=== PATIENT | male | born 1970 | race Caucasian/White ===

== ENCOUNTER 2017-04-22 20:59 | Emergency (ER) | payer OTHER ==
[~2017-04-22] VITALS: Ht 182.8 cm; Wt 90.7 kg
[~2017-04-22 20:59] MED LIST: ASPIRIN325 M2 PO; ATARAX25 MG PO; AUGMENTIN 500 M1 TAB PO; BACTRIM DS 8001 TA1 PO; CEPHALEXIN500 M1 PO; CIPRO500 MG PO; CIPROFLOXACIN500 MG PO; CLARITIN10 MG PO; CLINDAMYCIN HC300 MG PO; CLONIDINE0.1 MG PO; COLCHICINE0.6 MG PO; Carafate1 GM PO; FAMOTIDINE20 MG PO; INDOCIN25 MG PO; LEVOFLOXACIN500 MG PO; LIDEX0.05% T; Lunesta2 MG PO; MOTRIN800 MG PO; NKHM; PERCOCET 325 MG1 TA7 PO; PREDNICOT20 MG PO; PREDNISONE10 MG PO; SEPTRA DS 800 M1 TAB PO; SUBOXONE 2 MG-01 TA2 SL; SUBOXONE 8 MG-21 TA2 SL; VICO10300 PO; VICODIN 500 MG-1 TAB PO; ZOFRAN ODT4 MG SL; ZYLOPRIM100 MG PO; Zofran4 MG PO
[2017-04-22 21:08] VITALS: BP 176/81
[2017-04-22] MEDS ORDERED: BACITRACIN1 GM OP (21:33)
[2017-04-22] MEDS ORDERED: KEFLEX 500 MG E2 CAP PO (21:33)
[2017-04-22] MEDS ORDERED: Peridex 473 ML473 ML PO (21:34)
[2017-04-22] MEDS ORDERED: PERCOCET 325 MG1 TA2 PO (21:35)
[2017-04-22] MEDS ORDERED: MEDROL DOSEPAK4 MG PO (21:36)
== END 2017-04-22 22:10 | disposition home or self-care (01) ==
LOC: ED 20:59
DX: G89.18 Other acute postprocedural pain (principal); R22.0 Localized swelling, mass and lump, head; Z98.890 Other specified postprocedural states; Z79.82 Long term (current) use of aspirin; Z88.8 Allergy status to other drugs, medicaments and biological substances

== ENCOUNTER 2017-05-20 15:11 | Inpatient (IN) | payer OTHER ==
[~2017-05-20] VITALS: Ht 185.4 cm; Wt 106.2 kg
[2017-05-20 15:11] VITALS: BP 170/100
[~2017-05-20 15:11] MED LIST changes: +BACITRACIN1 GM OP; +KEFLEX 500 MG E2 CAP PO; +MEDROL DOSEPAK4 MG PO; +PERCOCET 325 MG1 TA2 PO; +Peridex 473 ML473 ML PO
[2017-05-20 15:37] LABS: BASO % 0.5 % (0.0-1.0); EOS # 0.1 10*3/uL (0.0-0.4); HEMATOCRIT 38.7 % (42.0-52.0); LYMPH # 1.5 10*3/uL (1.3-4.4); LYMPH % 25.7 % (27.0-41.0); MEAN CELL VOLUME 92.6 fl (80.0-94.0); MEAN CORPUSCULAR HGB 31.1 pg (27.0-31.0); MEAN CORPUSCULAR HGB CONC 33.6 g/dl (33.0-37.0); MEAN PLATELET VOLUME 9.8 fl (9.6-12.3); MONO # 0.6 10*3/uL (0.1-1.0); MONO % 9.4 % (3.0-9.0); NEUT # 3.7 10*3/uL (2.3-7.9); NEUT % 62.7 % (47.0-73.0); PLATELET COUNT AUTOMATED 174 10*3/uL (130-400); RED BLOOD COUNT 4.18 10*6/uL (4.50-5.90); RED CELL DISTRI WIDTH 13.8 % (0-14.5); WHITE BLOOD COUNT 5.8 10*3/uL (4.8-10.8)
[2017-05-20 15:54] LABS: ALBUMIN 4.2 gm/dl (3.1-4.5); BILIRUBIN, TOTAL 0.5 mg/dl (0.2-1.0); TOTAL PROTEIN 8.5 gm/dL (6.4-8.2)
[2017-05-20 15:57] LABS: TROPONIN I 0.076 ng/ml (<0.045)
[2017-05-20 16:10] VITALS: BP 146/66; BP 146/86
[2017-05-20 16:48] LABS: BILIRUBIN NEGATIVE (NEGATIVE); BLOOD 3+ (NEGATIVE); CLARITY CLEAR (CLEAR); COLOR YELLOW (YELLOW); GLUCOSE TRACE (NEGATIVE); KETONE NEGATIVE (NEGATIVE); LEUKO ESTERASE NEGATIVE (NEGATIVE); NITRITE NEGATIVE (NEGATIVE); PH 5.5 (5.0-9.0); PROTEIN 1+ (NEGATIVE); SPECIFIC GRAVITY 1.015 (1.005-1.030); UROBILINOGEN 0.2 E.U./dl (0.2-1.0)
[2017-05-20 17:00] LABS: URINE AMPHETAMINES < 1000 (1000ng/ml); URINE BARBITURATES < 200 (200ng/ml); URINE COCAINE > 300 (300ng/ml)
[2017-05-20 17:03] LABS: URINE REFLEX COMMENT YES (NO)
[2017-05-20 18:15] VITALS: BP 119/73
[2017-05-20 18:45] VITALS: BP 122/64
[2017-05-20 20:00] VITALS: BP 122/64
[2017-05-21] VITALS: BP 110/62
[2017-05-21 00:42] LABS: CKMB 1.7 ng/ml (0.5-3.6)
[2017-05-21 00:45] LABS: TROPONIN I 0.089 ng/ml (<0.045)
[2017-05-21 04:00] VITALS: BP 96/52
[2017-05-21 06:38] LABS: CKMB 1.3 ng/ml (0.5-3.6)
[2017-05-21 06:42] LABS: ALBUMIN 3.5 gm/dl (3.1-4.5); BUN 21 mg/dl (7-24); CARBON DIOXIDE 29 mmol/L (21-32); CHLORIDE 102 mmol/L (98-107); CHOLESTEROL 157 mg/dL (<200); EST GLOM FILT AFRICAN AMERICAN > 60 ml/min; GLUCOSE 96 mg/dL (65-99); MAGNESIUM 1.8 mg/dL (1.5-2.1); PHOSPHOROUS 3.3 mg/dL (2.5-4.9); POTASSIUM 4.9 mmol/L (3.5-5.1); SGOT/AST 42 IU/L (3-35); SGPT/ALT 51 U/L (12-78); SODIUM 136 mmol/L (136-145); TRIGLYCERIDES 49 mg/dl (<150); VLDL CHOLESTEROL 10 mg/dL (6-40)
[2017-05-21 06:47] LABS: BASO % 0.3 % (0.0-1.0); EOS # 0.1 10*3/uL (0.0-0.4); EOS % 1.4 % (1.0-4.0); HEMATOCRIT 34.8 % (42.0-52.0); HEMOGLOBIN 11.5 g/dl (14.0-18.0); LYMPH # 1.5 10*3/uL (1.3-4.4); LYMPH % 16.6 % (27.0-41.0); MEAN CELL VOLUME 94.1 fl (80.0-94.0); MEAN CORPUSCULAR HGB 31.1 pg (27.0-31.0); MEAN PLATELET VOLUME 10.4 fl (9.6-12.3); MONO # 0.7 10*3/uL (0.1-1.0); MONO % 7.1 % (3.0-9.0); NEUT # 6.8 10*3/uL (2.3-7.9); NEUT % 74.2 % (47.0-73.0); PLATELET COUNT AUTOMATED 165 10*3/uL (130-400); RED CELL DISTRI WIDTH 14.1 % (0-14.5); WHITE BLOOD COUNT 9.2 10*3/uL (4.8-10.8)
[2017-05-21 06:49] LABS: ALKALINE PHOSPHATASE 69 U/L (45-117); BILIRUBIN, TOTAL 0.9 mg/dl (0.2-1.0); FREE T4 0.76 ng/dl (0.76-1.46); HDL CHOLESTEROL 59 mg/dl (40-60); LDL CHOLESTEROL 88 mg/dL (9-159); THYROID STIM HORMONE (HS) 0.614 uIU/ml (0.358-4.75); TOTAL PROTEIN 7.4 gm/dL (6.4-8.2)
[2017-05-21 06:52] LABS: FOLIC ACID 12.11 ng/mL (>5.38); VITAMIN D, 25-HYDROXY 41.2 ng/mL (30-100)
[2017-05-21 07:08] LABS: PROTHROMBIN TIME 10.7 SECONDS (9.0-12.4)
[2017-05-21 07:09] LABS: HEMOGLOBIN A1c 5.6 % (4.8-5.6)
[2017-05-21 08:00] VITALS: BP 94/54
== END 2017-05-21 12:24 | disposition home or self-care (01) | DRG 917 ==
LOC: ED 15:11 → ICCU 17:18 → EDHOLD 17:18 → 5E 17:28 → ICCU 17:52
PROVIDERS: Emergency Medicine; Hospitalist
DX: T40.601A Poisoning by unspecified narcotics, accidental (unintentional), initial encounter (principal); N17.0 Acute kidney failure with tubular necrosis; G93.41 Metabolic encephalopathy; E87.1 Hypo-osmolality and hyponatremia; Y92.89 Other specified places as the place of occurrence of the external cause; K21.9 Gastro-esophageal reflux disease without esophagitis; B19.20 Unspecified viral hepatitis C without hepatic coma; R91.1 Solitary pulmonary nodule; M10.9 Gout, unspecified; F17.210 Nicotine dependence, cigarettes, uncomplicated; F11.10 Opioid abuse, uncomplicated; F10.10 Alcohol abuse, uncomplicated; E87.8 Other disorders of electrolyte and fluid balance, not elsewhere classified; Z83.3 Family history of diabetes mellitus; Z88.8 Allergy status to other drugs, medicaments and biological substances

== ENCOUNTER → 2017-06-28 | Outpatient (CLI) | payer OTHER | END | disposition home or self-care (01) | LOC: RAD 17:36 | DX: M25.551 Pain in right hip (principal); S39.91XD Unspecified injury of abdomen, subsequent encounter; X58.XXXD Exposure to other specified factors, subsequent encounter ==

== ENCOUNTER 2017-12-08 01:43 | Emergency (ER) | payer OTHER ==
[~2017-12-08] VITALS: Ht 182.8 cm; Wt 95.3 kg
[2017-12-08 01:50] VITALS: BP 157/92
[2017-12-08 02:06] LABS: BASO # 0.1 10*3/uL (0.0-0.1); BASO % 1.1 % (0.0-1.0); EOS # 0.3 10*3/uL (0.0-0.4); EOS % 2.8 % (1.0-4.0); HEMATOCRIT 42.5 % (42.0-52.0); HEMOGLOBIN 14.5 g/dl (14.0-18.0); LYMPH # 2.8 10*3/uL (1.3-4.4); LYMPH % 30.1 % (27.0-41.0); MEAN CELL VOLUME 90.4 fl (80.0-94.0); MEAN CORPUSCULAR HGB 30.9 pg (27.0-31.0); MEAN CORPUSCULAR HGB CONC 34.1 g/dl (33.0-37.0); MEAN PLATELET VOLUME 10.8 fl (9.6-12.3); MONO # 0.7 10*3/uL (0.1-1.0); NEUT # 5.3 10*3/uL (2.3-7.9); NEUT % 57.8 % (47.0-73.0); PLATELET COUNT AUTOMATED 184 10*3/uL (130-400); RED CELL DISTRI WIDTH 11.5 % (0-14.5); WHITE BLOOD COUNT 9.2 10*3/uL (4.8-10.8)
[2017-12-08 02:20] LABS: BUN 13 mg/dl (7-24); CHLORIDE 99 mmol/L (98-107); CREATININE 1.21 mg/dL (0.70-1.30); POTASSIUM 4.3 mmol/L (3.5-5.1); SODIUM 138 mmol/L (136-145); URIC ACID 9.3 mg/dL (3.5-7.2)
[2017-12-08] MEDS ORDERED: INDOMETHACIN50 MG PO (02:45)
== END 2017-12-08 03:25 | disposition home or self-care (01) ==
LOC: ED 01:43
PROVIDERS: Emergency Medicine
DX: M10.9 Gout, unspecified (principal); M25.522 Pain in left elbow; F11.10 Opioid abuse, uncomplicated; E78.00 Pure hypercholesterolemia, unspecified; F17.200 Nicotine dependence, unspecified, uncomplicated; K21.9 Gastro-esophageal reflux disease without esophagitis; Z90.89 Acquired absence of other organs; Z88.8 Allergy status to other drugs, medicaments and biological substances

== ENCOUNTER 2018-04-04 14:33 | Emergency (ER) | payer SELFPAY ==
[~2018-04-04] VITALS: Ht 185.4 cm; Wt 106.6 kg
[~2018-04-04 14:33] MED LIST changes: +INDOMETHACIN50 MG PO
[2018-04-04 14:36] VITALS: BP 129/76
[2018-04-04] MEDS ORDERED: PREDNISONE10 MG PO (14:51)
== END 2018-04-04 14:59 | disposition home or self-care (01) ==
LOC: ED 14:33
DX: M10.9 Gout, unspecified (principal); M25.562 Pain in left knee; M17.0 Bilateral primary osteoarthritis of knee; F11.10 Opioid abuse, uncomplicated; F17.200 Nicotine dependence, unspecified, uncomplicated; Z90.89 Acquired absence of other organs; Z88.8 Allergy status to other drugs, medicaments and biological substances

== ENCOUNTER 2018-09-01 02:33 | Emergency (ER) | payer BC ==
[~2018-09-01] VITALS: Ht 185.4 cm; Wt 108.9 kg
--- NOTE | ~2018-09-01 | EKG ---
[place], [place] ELECTROCARDIOGRAM REPORT NAME: SANDOR MCKEON III UNIT #: [id number] ROOM: DOCTOR: EPIPHANY DRAFT REPORT BIRTHDATE: [birth year] [facility] Test Date: 2018-09-01 Test Time: 03:09:12 Pat Name: SANDOR MCKEON Department: ER Room: 9 Gender: M Fur Joiner: [place] Castano : 1970 Requested By: GARY BAKER Order Number: [id number] Reading MD: Elizabeth Cao MD Measurements Intervals [place] Rate: 60 P: 18 MO: 180 QRS: 18 QRSD: 105 T: 23 QT: 387 QTc: 387 Interpretive Statements Sinus rhythm Electronically Signed On 09-02-2018 12:10:12 PDT by Elizabeth Cao MD CM:EKGRPT:ELECTROCARDIOGRAM REPORT [id number] GARY BAKER MD EPIPHANY DRAFT REPORT GARY BAKER MD
[2018-09-01 03:07] LABS: BASO # 0.1 10*3/uL (0.0-0.1); BASO % 0.8 % (0.0-1.0); EOS # 0.2 10*3/uL (0.0-0.4); EOS % 3.6 % (1.0-4.0); HEMATOCRIT 43.8 % (42.0-52.0); HEMOGLOBIN 14.9 g/dl (14.0-18.0); LYMPH # 1.9 10*3/uL (1.3-4.4); LYMPH % 31.7 % (27.0-41.0); MEAN CELL VOLUME 95.8 fl (80.0-94.0); MEAN CORPUSCULAR HGB 32.6 pg (27.0-31.0); MONO # 0.5 10*3/uL (0.1-1.0); MONO % 8.6 % (3.0-9.0); NEUT # 3.3 10*3/uL (2.3-7.9); NEUT % 54.8 % (47.0-73.0); PLATELET COUNT AUTOMATED 174 10*3/uL (130-400); RED BLOOD COUNT 4.57 10*6/uL (4.50-5.90); WHITE BLOOD COUNT 6.1 10*3/uL (4.8-10.8)
[2018-09-01 03:24] LABS: ALBUMIN 3.5 gm/dl (3.1-4.5); ALKALINE PHOSPHATASE 97 U/L (45-117); BUN 15 mg/dl (7-24); CHLORIDE 108 mmol/L (98-107); CREATININE 1.13 mg/dL (0.70-1.30); LIPASE 341 U/L (73-393); POTASSIUM 4.1 mmol/L (3.5-5.1); SGOT/AST 114 IU/L (3-35); SGPT/ALT 168 U/L (12-78); SODIUM 136 mmol/L (136-145); TOTAL PROTEIN 8.2 gm/dL (6.4-8.2)
[2018-09-01 03:25] LABS: TROPONIN I < 0.015 ng/ml (<0.045)
[2018-09-01 03:34] LABS: BILIRUBIN NEGATIVE (NEGATIVE); BLOOD 1+ (NEGATIVE); CLARITY CLEAR (CLEAR); COLOR YELLOW (YELLOW); GLUCOSE NEGATIVE (NEGATIVE); KETONE NEGATIVE (NEGATIVE); LEUKO ESTERASE NEGATIVE (NEGATIVE); NITRITE NEGATIVE (NEGATIVE); SPECIFIC GRAVITY 1.025 (1.005-1.030); UROBILINOGEN 0.2 E.U./dl (0.2-1.0)
[2018-09-01 03:38] LABS: RBC 16-20 rbc/hpf (0-2); YEAST TRACE
[2018-09-01 03:40] LABS: URINE AMPHETAMINES < 1000 (1000ng/ml); URINE BARBITURATES < 200 (200ng/ml); URINE BENZODIAZEPINES < 200 (200ng/ml); URINE CANNABINOIDS (THC) < 50 (50ng/ml); URINE COCAINE < 300 (300ng/ml); URINE METHADONE < 300 (300ng/ml); URINE OPIATES < 300 (300ng/ml); WBC 0-2 wbc/hpf (0-5)
[2018-09-01 03:41] LABS: URINE PHENCYCLIDINE < 25 (25ng/ml)
[2018-09-01 05:09] VITALS: BP 121/76
[2018-09-01] MEDS ORDERED: Motrin,Rufen800 MG PO (05:38)
== END 2018-09-01 06:02 | disposition home or self-care (01) ==
LOC: ED 02:33
PROVIDERS: Emergency Medicine Emergency Medical Services
DX: R10.11 Right upper quadrant pain (principal); R19.7 Diarrhea, unspecified; K21.9 Gastro-esophageal reflux disease without esophagitis; M10.062 Idiopathic gout, left knee; Z88.8 Allergy status to other drugs, medicaments and biological substances

== ENCOUNTER 2018-12-20 21:41 | Emergency (ER) | payer BC ==
[~2018-12-20] VITALS: Ht 185.4 cm; Wt 108.9 kg
[~2018-12-20 21:41] MED LIST changes: +Motrin,Rufen800 MG PO
[2018-12-20 21:42] VITALS: BP 157/90
[2018-12-20] MEDS ORDERED: SEPTDS PO (22:43)
== END 2018-12-20 22:47 | disposition home or self-care (01) ==
LOC: ED 21:41
DX: L02.511 Cutaneous abscess of right hand (principal); K21.9 Gastro-esophageal reflux disease without esophagitis; M10.9 Gout, unspecified; Z88.6 Allergy status to analgesic agent

== ENCOUNTER 2019-03-20 22:27 | Inpatient (IN) | payer BC ==
[~2019-03-20] VITALS: Ht 182.9 cm; Wt 109.8 kg
--- NOTE | ~2019-03-20 | EKG ---
[place], [place] ELECTROCARDIOGRAM REPORT NAME: SANDOR MCKEON III UNIT #: [id number] ROOM: [facility] DOCTOR: JULES DRAFT REPORT BIRTHDATE: [birth year] [facility] Test Date: 2019-03-20 Test Time: 22:52:08 Pat Name: SANDOR MCKEON Department: Room: [facility] Gender: M Rn Care Manager: : 1970 Requested By: TRAVIS CARROLL DNP Order Number: [id number] Reading MD: Jose Daniel Cowan MD Measurements Intervals [place] Rate: 91 P: [place]: QRS: 28 QRSD: 116 T: 10 QT: 383 QTc: 472 Interpretive Statements Atrial fibrillation Nonspecific intraventricular conduction delay Compared to ECG 09/01/2018 03:09:12 Intraventricular conduction delay now present Sinus rhythm no longer present Electronically Signed On 03-22-2019 15:27:31 PDT by Jose Daniel Cowan MD CM:EKGRPT:ELECTROCARDIOGRAM REPORT [id number] TRAVIS CARROLL DNP EPIPHANY DRAFT REPORT TRAVIS CARROLL DNP
[~2019-03-20 22:27] MED LIST changes: +SEPTDS PO
[2019-03-20 22:30] VITALS: BP 162/103
--- NOTE | 2019-03-20 22:36 | NUR ---
PATIENT REFUSING CHEST XRAY AT THIS TIME, EXPLAINED TO PATIENT WE WANTED TO CHECK AND MAKE SURE HE DID NOT ASPIRATE WHILE UNRESPONSIVE. PER PATIENT "I'M FINE" AND STILL REFUSED CHEST XRAY.
[2019-03-20 22:54] LABS: BASO # 0.1 10*3/uL (0.0-0.1); BASO % 1.1 % (0.0-1.0); EOS # 0.1 10*3/uL (0.0-0.4); EOS % 2.2 % (1.0-4.0); HEMATOCRIT 42.5 % (42.0-52.0); HEMOGLOBIN 14.4 g/dl (14.0-18.0); LYMPH # 1.5 10*3/uL (1.3-4.4); LYMPH % 23.2 % (27.0-41.0); MEAN CELL VOLUME 93.4 fl (80.0-94.0); MEAN CORPUSCULAR HGB 31.6 pg (27.0-31.0); MEAN CORPUSCULAR HGB CONC 33.9 g/dl (33.0-37.0); MONO # 0.4 10*3/uL (0.1-1.0); MONO % 6.1 % (3.0-9.0); NEUT # 4.2 10*3/uL (2.3-7.9); NEUT % 66.9 % (47.0-73.0); PLATELET COUNT AUTOMATED 184 10*3/uL (130-400); RED BLOOD COUNT 4.55 10*6/uL (4.50-5.90); RED CELL DISTRI WIDTH 11.9 % (0-14.5); WHITE BLOOD COUNT 6.3 10*3/uL (4.8-10.8)
[2019-03-20 23:02] VITALS: BP 136/76
[2019-03-20 23:06] LABS: ACT PARTIAL THROMBO TIME 22.7 SECONDS (20.0-32.1)
[2019-03-20 23:16] LABS: ALBUMIN 3.9 gm/dl (3.1-4.5); ALKALINE PHOSPHATASE 80 U/L (45-117); BUN 20 mg/dl (7-24); CHLORIDE 102 mmol/L (98-107); CREATININE 1.36 mg/dL (0.70-1.30); LIPASE 169 U/L (73-393); POTASSIUM 3.4 mmol/L (3.5-5.1); SGPT/ALT 82 U/L (12-78); SODIUM 135 mmol/L (136-145); TOTAL PROTEIN 8.3 gm/dL (6.4-8.2)
[2019-03-20 23:18] LABS: SGOT/AST 58 IU/L (3-35)
[2019-03-20 23:19] LABS: TROPONIN I < 0.015 ng/ml (<0.045)
[2019-03-21 00:30] VITALS: BP 118/74; BP 120/90
--- NOTE | 2019-03-21 00:30 | NUR ---
A 48, admitted to ICCU, under the services of HEBER Nunez DO with a diagnosis of NEW ONSET OF AFIB/OPIOID OVERDOSE. Chief complaint is FOUND UNRESPONSIVE. Patient arrived via wheel chair from ER. Monitor applied. Initial assessment completed. Vital signs taken and recorded. HEBER NUNEZ DO notified of admission to the unit. Orders received. See assessment for past medical history, medications and allergies. Patient and/or family oriented to unit. [facility]U visitation policy reviewed. Clothing/patient valuable form completed. QUYNH OLVERA
[2019-03-21] MEDS ORDERED: INDOMETHACIN50 MG PO (00:59)
--- NOTE | 2019-03-21 01:15 | NUR ---
CONSULT LEFT WITH DR. ASHLEY ANSWERING SERVICE.
[2019-03-21 02:13] LABS: URINE AMPHETAMINES < 1000 (1000ng/ml); URINE BARBITURATES < 200 (200ng/ml); URINE BENZODIAZEPINES < 200 (200ng/ml); URINE CANNABINOIDS (THC) < 50 (50ng/ml); URINE COCAINE > 300 (300ng/ml); URINE METHADONE < 300 (300ng/ml); URINE OPIATES < 300 (300ng/ml); URINE PHENCYCLIDINE < 25 (25ng/ml)
[2019-03-21 04:00] VITALS: BP 112/70
[2019-03-21 04:51] LABS: BASO # 0.1 10*3/uL (0.0-0.1); BASO % 0.7 % (0.0-1.0); EOS # 0.1 10*3/uL (0.0-0.4); EOS % 1.9 % (1.0-4.0); HEMATOCRIT 41.6 % (42.0-52.0); HEMOGLOBIN 13.8 g/dl (14.0-18.0); LYMPH % 14.3 % (27.0-41.0); MEAN CELL VOLUME 94.8 fl (80.0-94.0); MEAN CORPUSCULAR HGB 31.4 pg (27.0-31.0); MEAN CORPUSCULAR HGB CONC 33.2 g/dl (33.0-37.0); MONO # 0.6 10*3/uL (0.1-1.0); MONO % 7.8 % (3.0-9.0); NEUT # 5.4 10*3/uL (2.3-7.9); NEUT % 74.9 % (47.0-73.0); PLATELET COUNT AUTOMATED 174 10*3/uL (130-400); RED BLOOD COUNT 4.39 10*6/uL (4.50-5.90); RED CELL DISTRI WIDTH 11.9 % (0-14.5); WHITE BLOOD COUNT 7.2 10*3/uL (4.8-10.8)
[2019-03-21 06:20] LABS: BUN 17 mg/dl (7-24); CHLORIDE 106 mmol/L (98-107); CHOLESTEROL 131 mg/dL (<200); FREE T4 1.07 ng/dl (0.76-1.46); HDL CHOLESTEROL 43 mg/dl (40-60); LDL CHOLESTEROL 76 mg/dL (9-159); PHOSPHOROUS 4.1 mg/dL (2.5-4.9); POTASSIUM 4.2 mmol/L (3.5-5.1); SODIUM 140 mmol/L (136-145); TRIGLYCERIDES 61 mg/dl (<150); VLDL CHOLESTEROL 12 mg/dL (6-40)
--- NOTE | 2019-03-21 07:20 | NUR ---
Shift chart check completed.
[2019-03-21 08:00] VITALS: BP 126/68
--- NOTE | 2019-03-21 08:36 | NUR ---
CARDIOLOGY HERE TO SEE PATIENT. DR BRYANT MADE AWRE THAT THE PATIENT IS REFUSING THE CARDIAC DIET & SAID HE WILL HAVE SOMEONE BRING HIM IN FOOD BECAUSE HE WILL NOT QUIT EATING SALT. PATIENT ALSO ASKED ABOUT IF HE IS INTERESTED IN STOPPING THE ALCOHOL & HE SAID NO HE WILL NOT QUIT. ASKED ABOUT COCAINE & HE SAID NO.
[2019-03-21 12:00] VITALS: BP 134/74
--- NOTE | 2019-03-21 12:20 | NUR ---
[employer] in to talk to patient. Patient states lives at HOME with ALONE. There are 3 steps in the home. Physician: Bo LANTIGUA [facility]acy: [facility] Home health services: NONE Patient's level of ADLs: INDEPENDENT Patient has working utilities: YES DME: NONE Follow-up physician's appointment after d/c: WILL BE MADE BY HOSPITALIST NURSE DIRECTOR ON DISCHARGE Does patient want to access PORTAL?: NO Discharge plan PT STATES HE LIVES AT HOME ALONE AND IS INDEPENDENT IN HIS CARE. DENIES ANY NEEDS AT HOME AFTER DISCHARGE. WILL CONTINUE TO FOLLOW. PT STATES HE HAS A RIDE HOME ON DISCHARGE. . GERALD AREVALO
[2019-03-21 16:00] VITALS: BP 137/59
[2019-03-21] MEDS ORDERED: NATURE'S BLEND F1 MG PO (16:52)
[2019-03-21] MEDS ORDERED: VITAMIN B-1100 M1 PO (16:52)
--- NOTE | 2019-03-21 17:20 | NUR ---
Discharge instructions reviewed with patient/family. Patient receptive and verbalizes understanding. Follow-up care arranged. Written instructions given to patient/family. Hep Lock discontinued. Site asymptomatic. Pressure applied. Sterile dressing applied. AMBULATED OUT PER HIS REQUEST HANG LICEA
[2019-06-28] MEDS ORDERED: NARCAN IM (02:29)
[2019-06-28] MEDS ORDERED: ZOFRAN4 MG PO (02:54)
== END 2019-03-21 17:20 | disposition home or self-care (01) | DRG 917 ==
LOC: ED 22:27 → EDHOLD 23:32 → ICCU 23:33
PROVIDERS: Nurse Practitioner Family; Student in an Organized Health Care Education/Training Program; ADMIT Internal Medicine
DX: T40.2X1A Poisoning by other opioids, accidental (unintentional), initial encounter (principal); G93.41 Metabolic encephalopathy; J96.00 Acute respiratory failure, unspecified whether with hypoxia or hypercapnia; R74.0 Nonspecific elevation of levels of transaminase and lactic acid dehydrogenase [LDH]; I48.91 Unspecified atrial fibrillation; E87.6 Hypokalemia; F14.10 Cocaine abuse, uncomplicated; N18.3 Chronic kidney disease, stage 3 (moderate); F10.10 Alcohol abuse, uncomplicated; B19.20 Unspecified viral hepatitis C without hepatic coma; K76.89 Other specified diseases of liver; M1A.9XX0 Chronic gout, unspecified, without tophus (tophi); I51.7 Cardiomegaly; K21.9 Gastro-esophageal reflux disease without esophagitis; R73.9 Hyperglycemia, unspecified; Z72.0 Tobacco use; Z71.6 Tobacco abuse counseling; Z88.8 Allergy status to other drugs, medicaments and biological substances; Z91.09 Other allergy status, other than to drugs and biological substances; Z83.3 Family history of diabetes mellitus; Z82.49 Family history of ischemic heart disease and other diseases of the circulatory system; Z79.899 Other long term (current) drug therapy; Z71.51 Drug abuse counseling and surveillance of drug abuser; Z71.41 Alcohol abuse counseling and surveillance of alcoholic; Y92.89 Other specified places as the place of occurrence of the external cause

== ENCOUNTER 2019-04-19 15:39 | Emergency (ER) | payer BC ==
[~2019-04-19] VITALS: Ht 185.4 cm; Wt 108.9 kg
[~2019-04-19 15:39] MED LIST changes: +NATURE'S BLEND F1 MG PO; +VITAMIN B-1100 M1 PO
[2019-04-19] MEDS ORDERED: KEFLEX500 M1 PO (16:37)
[2019-06-28] MEDS ORDERED: NARCAN IM (02:29)
[2019-06-28] MEDS ORDERED: ZOFRAN4 MG PO (02:54)
== END 2019-04-19 16:46 | disposition home or self-care (01) ==
LOC: ED 15:39
DX: S71.112A Laceration without foreign body, left thigh, initial encounter (principal); K21.9 Gastro-esophageal reflux disease without esophagitis; I48.91 Unspecified atrial fibrillation; N18.3 Chronic kidney disease, stage 3 (moderate); F17.220 Nicotine dependence, chewing tobacco, uncomplicated; Z91.048 Other nonmedicinal substance allergy status; Z88.8 Allergy status to other drugs, medicaments and biological substances; Z79.899 Other long term (current) drug therapy; W22.8XXA Striking against or struck by other objects, initial encounter; Y93.89 Activity, other specified; Y92.89 Other specified places as the place of occurrence of the external cause; Y99.8 Other external cause status

== ENCOUNTER 2019-04-26 21:56 | Emergency (ER) | payer BC ==
[~2019-04-26 21:56] MED LIST changes: +KEFLEX500 M1 PO
[2019-04-26 21:58] VITALS: BP 162/92
[2019-04-26] MEDS ORDERED: AUGMENTIN 500500 M1 PO (22:12)
[2019-06-28] MEDS ORDERED: NARCAN IM (02:29)
[2019-06-28] MEDS ORDERED: ZOFRAN4 MG PO (02:54)
== END 2019-04-26 22:23 | disposition home or self-care (01) ==
LOC: ED 21:56
DX: H66.92 Otitis media, unspecified, left ear (principal); R11.2 Nausea with vomiting, unspecified; R42 Dizziness and giddiness; K21.9 Gastro-esophageal reflux disease without esophagitis; M10.9 Gout, unspecified; N18.3 Chronic kidney disease, stage 3 (moderate); F17.220 Nicotine dependence, chewing tobacco, uncomplicated; Z79.899 Other long term (current) drug therapy; Z88.8 Allergy status to other drugs, medicaments and biological substances

== ENCOUNTER 2019-05-13 07:22 | Emergency (ER) | payer BC ==
[~2019-05-13] VITALS: Ht 185.4 cm; Wt 108.9 kg
--- NOTE | ~2019-05-13 | EKG ---
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
[~2019-05-13 07:22] MED LIST changes: +AUGMENTIN 500500 M1 PO
[2019-05-13 07:24] VITALS: BP 132/69
[2019-05-13 07:42] LABS: BASO % 0.7 % (0.0-1.0); EOS # 0.2 10*3/uL (0.0-0.4); EOS % 3.7 % (1.0-4.0); HEMATOCRIT 43.3 % (42.0-52.0); LYMPH # 1.5 10*3/uL (1.3-4.4); MEAN CELL VOLUME 95.8 fl (80.0-94.0); MEAN CORPUSCULAR HGB CONC 32.3 g/dl (33.0-37.0); MEAN PLATELET VOLUME 9.7 fl (9.6-12.3); MONO # 0.5 10*3/uL (0.1-1.0); MONO % 8.7 % (3.0-9.0); NEUT # 3.6 10*3/uL (2.3-7.9); NEUT % 60.4 % (47.0-73.0); PLATELET COUNT AUTOMATED 169 10*3/uL (130-400); RED BLOOD COUNT 4.52 10*6/uL (4.50-5.90); RED CELL DISTRI WIDTH 12.3 % (0-14.5); WHITE BLOOD COUNT 5.9 10*3/uL (4.8-10.8)
[2019-05-13 08:13] LABS: ALBUMIN 3.4 gm/dl (3.1-4.5); ALKALINE PHOSPHATASE 80 U/L (45-117); BUN 18 mg/dl (7-24); CHLORIDE 108 mmol/L (98-107); CREATININE 1.21 mg/dL (0.70-1.30); POTASSIUM 4.3 mmol/L (3.5-5.1); SGOT/AST 42 IU/L (3-35); SGPT/ALT 60 U/L (12-78); SODIUM 143 mmol/L (136-145); TOTAL PROTEIN 7.8 gm/dL (6.4-8.2)
[2019-05-13] MEDS ORDERED: NARCAN4 MG NAS (08:18)
[2019-05-13 08:23] LABS: ETHYL ALCOHOL < 3.0 mg/dl (<3)
[2019-05-13 08:29] LABS: URINE AMPHETAMINES < 1000 (1000ng/ml); URINE BARBITURATES < 200 (200ng/ml); URINE BENZODIAZEPINES < 200 (200ng/ml); URINE CANNABINOIDS (THC) < 50 (50ng/ml); URINE COCAINE > 300 (300ng/ml); URINE METHADONE < 300 (300ng/ml); URINE OPIATES > 300 (300ng/ml)
[2019-05-13 08:32] LABS: URINE PHENCYCLIDINE < 25 (25ng/ml)
[2019-06-28] MEDS ORDERED: NARCAN IM (02:29)
[2019-06-28] MEDS ORDERED: ZOFRAN4 MG PO (02:54)
== END 2019-05-13 08:42 | disposition home or self-care (01) ==
LOC: ED 07:22
PROVIDERS: Emergency Medicine
DX: F11.10 Opioid abuse, uncomplicated (principal); F14.10 Cocaine abuse, uncomplicated; L23.7 Allergic contact dermatitis due to plants, except food; Z48.02 Encounter for removal of sutures; F17.220 Nicotine dependence, chewing tobacco, uncomplicated; K21.9 Gastro-esophageal reflux disease without esophagitis; I48.91 Unspecified atrial fibrillation; N18.3 Chronic kidney disease, stage 3 (moderate); Z91.048 Other nonmedicinal substance allergy status; Z88.8 Allergy status to other drugs, medicaments and biological substances; Z79.899 Other long term (current) drug therapy; Z79.2 Long term (current) use of antibiotics

== ENCOUNTER 2019-05-18 10:48 | Emergency (ER) | payer BC ==
[~2019-05-18] VITALS: Ht 185.4 cm; Wt 108.9 kg
[~2019-05-18 10:48] MED LIST changes: +NARCAN4 MG NAS
[2019-05-18 10:50] VITALS: BP 144/80
[2019-05-18] MEDS ORDERED: Tobrex Ophth S2.5 ML OPH (12:06)
[2019-05-18] MEDS ORDERED: IBUPROFEN600 MG PO (12:06)
[2019-06-28] MEDS ORDERED: NARCAN IM (02:29)
[2019-06-28] MEDS ORDERED: ZOFRAN4 MG PO (02:54)
== END 2019-05-18 12:25 | disposition home or self-care (01) ==
LOC: ED 10:48
DX: S05.01XA Injury of conjunctiva and corneal abrasion without foreign body, right eye, initial encounter (principal); F17.220 Nicotine dependence, chewing tobacco, uncomplicated; Z79.899 Other long term (current) drug therapy; Z88.8 Allergy status to other drugs, medicaments and biological substances; X58.XXXA Exposure to other specified factors, initial encounter; Y93.89 Activity, other specified; Y92.89 Other specified places as the place of occurrence of the external cause; Y99.8 Other external cause status

== ENCOUNTER 2019-07-02 16:25 | Emergency (ER) | payer BC ==
[~2019-07-02] VITALS: Ht 182.8 cm; Wt 99.8 kg
[~2019-07-02 16:25] MED LIST changes: +IBUPROFEN600 MG PO; +NARCAN IM; +Tobrex Ophth S2.5 ML OPH; +ZOFRAN4 MG PO
[2019-07-02 16:26] VITALS: BP 140/84
== END 2019-07-02 18:00 ==
LOC: ED 16:25
DX: T40.1X1A Poisoning by heroin, accidental (unintentional), initial encounter (principal); R55 Syncope and collapse; F11.90 Opioid use, unspecified, uncomplicated; K21.9 Gastro-esophageal reflux disease without esophagitis; N18.3 Chronic kidney disease, stage 3 (moderate); M10.9 Gout, unspecified; I48.91 Unspecified atrial fibrillation; F17.220 Nicotine dependence, chewing tobacco, uncomplicated; Z88.8 Allergy status to other drugs, medicaments and biological substances; Y92.89 Other specified places as the place of occurrence of the external cause

== ENCOUNTER 2019-08-12 14:33 | Emergency (ER) | payer BC ==
[~2019-08-12] VITALS: Ht 185.4 cm; Wt 104.3 kg
[2019-08-12 14:38] VITALS: BP 156/91
== END 2019-08-12 14:52 | disposition left against medical advice (07) ==
LOC: ED 14:33
DX: F19.10 Other psychoactive substance abuse, uncomplicated (principal); R42 Dizziness and giddiness; F11.10 Opioid abuse, uncomplicated; F14.10 Cocaine abuse, uncomplicated; M10.9 Gout, unspecified; F17.200 Nicotine dependence, unspecified, uncomplicated; Z88.6 Allergy status to analgesic agent

== ENCOUNTER → 2020-10-01 | Outpatient (CLI) | payer SELFPAY | END | disposition home or self-care (01) | LOC: COVID19 13:14 | PROVIDERS: ATTEND Internal Medicine | DX: U07.1 COVID-19 (principal) ==

== ENCOUNTER → 2021-02-03 | Outpatient (CLI) | payer SELFPAY | END | disposition home or self-care (01) | LOC: COVID19 08:40 | PROVIDERS: ATTEND Student in an Organized Health Care Education/Training Program | DX: Z20.822 Contact with and (suspected) exposure to COVID-19 (principal) ==

== ENCOUNTER 2021-06-08 00:05 | Emergency (ER) | payer OTHER ==
[2021-06-08 00:15] VITALS: BP 155/81
[2021-06-08] MEDS ORDERED: NAPHCON-A EYE D15 ML OP (01:37)
[2021-06-08] MEDS ORDERED: ERYTHROMYCIN OPH1 GM OPH (01:37)
== END 2021-06-08 02:22 | disposition home or self-care (01) ==
LOC: ED 00:05
DX: H10.9 Unspecified conjunctivitis (principal); F17.200 Nicotine dependence, unspecified, uncomplicated; Z91.048 Other nonmedicinal substance allergy status; Z88.8 Allergy status to other drugs, medicaments and biological substances; Z79.899 Other long term (current) drug therapy; Z86.14 Personal history of Methicillin resistant Staphylococcus aureus infection; Z90.89 Acquired absence of other organs

== ENCOUNTER 2021-07-26 19:06 | Emergency (ER) | payer BC, OTHER ==
[~2021-07-26 19:06] MED LIST changes: +ERYTHROMYCIN OPH1 GM OPH; +NAPHCON-A EYE D15 ML OP
[2021-07-27] MEDS ORDERED: IBUPROFEN600 MG PO (06:17)
[2021-08-17] MEDS ORDERED: CIPROFLOXACIN750 MG PO (10:13)
== END 2021-07-26 22:00 | disposition left against medical advice (07) ==
LOC: ED 19:06
DX: M25.562 Pain in left knee (principal); Z53.21 Procedure and treatment not carried out due to patient leaving prior to being seen by health care provider

== ENCOUNTER 2021-07-27 03:23 | Emergency (ER) | payer BC, OTHER ==
[~2021-07-27] VITALS: Ht 182.8 cm; Wt 83.9 kg
[2021-07-27 03:35] VITALS: BP 136/85
[2021-07-27 04:46] LABS: BASO % 0.1 % (0.0-1.0); EOS # 0.1 10*3/uL (0.0-0.4); EOS % 0.5 % (1.0-4.0); HEMATOCRIT 40.4 % (42.0-52.0); LYMPH # 0.8 10*3/uL (1.3-4.4); LYMPH % 6.4 % (27.0-41.0); MEAN CELL VOLUME 92.2 fl (80.0-94.0); MEAN CORPUSCULAR HGB 29.5 pg (27.0-31.0); MEAN CORPUSCULAR HGB CONC 31.9 g/dl (33.0-37.0); MEAN PLATELET VOLUME 9.6 fl (9.6-12.3); MONO # 0.8 10*3/uL (0.1-1.0); MONO % 6.2 % (3.0-9.0); NEUT # 11.3 10*3/uL (2.3-7.9); PLATELET COUNT AUTOMATED 235 10*3/uL (130-400); RED BLOOD COUNT 4.38 10*6/uL (4.50-5.90); RED CELL DISTRI WIDTH 11.6 % (0-14.5); WHITE BLOOD COUNT 13.1 10*3/uL (4.8-10.8)
[2021-07-27 05:05] LABS: ALBUMIN 2.9 gm/dl (3.1-4.5); BUN 15 mg/dl (7-24); CHLORIDE 101 mmol/L (98-107); POTASSIUM 4.4 mmol/L (3.5-5.1); SGOT/AST 11 IU/L (3-35); SGPT/ALT 24 U/L (12-78); SODIUM 137 mmol/L (136-145)
[2021-07-27 05:08] LABS: ALKALINE PHOSPHATASE 97 U/L (45-117); CREATININE 0.74 mg/dL (0.70-1.30); TOTAL PROTEIN 7.3 gm/dL (6.4-8.2); URIC ACID 6.1 mg/dL (3.5-7.2)
[2021-07-27] MEDS ORDERED: IBUPROFEN600 MG PO (06:17)
== END 2021-07-27 06:52 | disposition home or self-care (01) ==
LOC: ED 03:23
PROVIDERS: Emergency Medicine
DX: M25.461 Effusion, right knee (principal); R73.9 Hyperglycemia, unspecified; F17.200 Nicotine dependence, unspecified, uncomplicated; Z91.048 Other nonmedicinal substance allergy status; Z88.8 Allergy status to other drugs, medicaments and biological substances; Z79.899 Other long term (current) drug therapy; Z88.1 Allergy status to other antibiotic agents; Z90.89 Acquired absence of other organs; Z98.890 Other specified postprocedural states; Z86.14 Personal history of Methicillin resistant Staphylococcus aureus infection

== ENCOUNTER 2021-08-20 14:00 | Inpatient (IN) | payer BC, OTHER ==
[~2021-08-20] VITALS: Ht 172.7 cm; Wt 63.5 kg
[~2021-08-20 14:00] MED LIST changes: +CIPROFLOXACIN750 MG PO
[2021-08-20 14:19] VITALS: BP 141/75
[2021-08-20 16:25] LABS: BASO % 0.4 % (0.0-1.0); EOS # 0.1 10*3/uL (0.0-0.4); EOS % 1.6 % (1.0-4.0); HEMATOCRIT 32.6 % (42.0-52.0); LYMPH # 1.9 10*3/uL (1.3-4.4); LYMPH % 22.5 % (27.0-41.0); MEAN CELL VOLUME 89.6 fl (80.0-94.0); MEAN CORPUSCULAR HGB 27.7 pg (27.0-31.0); MONO # 0.9 10*3/uL (0.1-1.0); NEUT # 5.5 10*3/uL (2.3-7.9); NEUT % 64.2 % (47.0-73.0); PLATELET COUNT AUTOMATED 486 10*3/uL (130-400); RED BLOOD COUNT 3.64 10*6/uL (4.50-5.90); WHITE BLOOD COUNT 8.6 10*3/uL (4.8-10.8)
[2021-08-20 16:39] LABS: ALBUMIN 2.8 gm/dl (3.1-4.5); ALKALINE PHOSPHATASE 100 U/L (45-117); BUN 9 mg/dl (7-24); CHLORIDE 101 mmol/L (98-107); CREATININE 0.99 mg/dL (0.70-1.30); POTASSIUM 3.7 mmol/L (3.5-5.1); SGOT/AST 33 IU/L (3-35); SGPT/ALT 31 U/L (12-78); SODIUM 135 mmol/L (136-145); TOTAL PROTEIN 8.5 gm/dL (6.4-8.2)
[2021-08-20 22:35] VITALS: BP 114/61
[2021-08-21] VITALS (10 sets, daily range): BP systolic 110–142; BP diastolic 61–86
[2021-08-21 06:53] LABS: BASO % 0.7 % (0.0-1.0); EOS # 0.2 10*3/uL (0.0-0.4); EOS % 3.8 % (1.0-4.0); HEMATOCRIT 30.7 % (42.0-52.0); LYMPH # 1.9 10*3/uL (1.3-4.4); LYMPH % 34.1 % (27.0-41.0); MEAN CELL VOLUME 91.6 fl (80.0-94.0); MEAN CORPUSCULAR HGB 28.1 pg (27.0-31.0); MEAN CORPUSCULAR HGB CONC 30.6 g/dl (33.0-37.0); MEAN PLATELET VOLUME 9.4 fl (9.6-12.3); MONO # 0.7 10*3/uL (0.1-1.0); MONO % 11.8 % (3.0-9.0); NEUT # 2.7 10*3/uL (2.3-7.9); NEUT % 48.7 % (47.0-73.0); PLATELET COUNT AUTOMATED 416 10*3/uL (130-400); RED BLOOD COUNT 3.35 10*6/uL (4.50-5.90); RED CELL DISTRI WIDTH 12.2 % (0-14.5); WHITE BLOOD COUNT 5.5 10*3/uL (4.8-10.8)
[2021-08-21 07:20] LABS: ALBUMIN 2.3 gm/dl (3.1-4.5); BUN 10 mg/dl (7-24); CHLORIDE 103 mmol/L (98-107); CREATININE 1.01 mg/dL (0.70-1.30); POTASSIUM 3.9 mmol/L (3.5-5.1); SGOT/AST 34 IU/L (3-35); SGPT/ALT 26 U/L (12-78); SODIUM 138 mmol/L (136-145); URIC ACID 5.2 mg/dL (3.5-7.2)
[2021-08-21 07:23] LABS: ALKALINE PHOSPHATASE 84 U/L (45-117); TOTAL PROTEIN 7.5 gm/dL (6.4-8.2)
[2021-08-22 02:51] VITALS: BP 133/73
[2021-08-22 05:45] LABS: BUN 10 mg/dl (7-24); CHLORIDE 104 mmol/L (98-107); CREATININE 0.98 mg/dL (0.70-1.30); SODIUM 139 mmol/L (136-145)
[2021-08-22 06:13] LABS: BASO # 0.1 10*3/uL (0.0-0.1); BASO % 0.7 % (0.0-1.0); EOS # 0.2 10*3/uL (0.0-0.4); EOS % 3.2 % (1.0-4.0); HEMATOCRIT 32.9 % (42.0-52.0); LYMPH # 2.2 10*3/uL (1.3-4.4); LYMPH % 30.5 % (27.0-41.0); MEAN CELL VOLUME 91.1 fl (80.0-94.0); MEAN CORPUSCULAR HGB CONC 30.7 g/dl (33.0-37.0); MEAN PLATELET VOLUME 9.8 fl (9.6-12.3); MONO # 0.7 10*3/uL (0.1-1.0); MONO % 9.6 % (3.0-9.0); NEUT # 3.9 10*3/uL (2.3-7.9); NEUT % 54.6 % (47.0-73.0); PLATELET COUNT AUTOMATED 407 10*3/uL (130-400); RED BLOOD COUNT 3.61 10*6/uL (4.50-5.90); RED CELL DISTRI WIDTH 12.1 % (0-14.5); WHITE BLOOD COUNT 7.1 10*3/uL (4.8-10.8)
[2021-08-22 06:42] VITALS: BP 134/72
[2021-08-22] MEDS ORDERED: LEVOFLOXACIN750 M2 PO (12:49)
== END 2021-08-22 13:09 | disposition home or self-care (01) | DRG 549 ==
LOC: ED 14:00 → EDHOLD 18:00
PROVIDERS: Emergency Medicine; Internal Medicine; ADMIT Internal Medicine; ATTEND Internal Medicine
DX: M00.9 Pyogenic arthritis, unspecified (principal); E44.0 Moderate protein-calorie malnutrition; F11.20 Opioid dependence, uncomplicated; B19.20 Unspecified viral hepatitis C without hepatic coma; D64.9 Anemia, unspecified; Z53.29 Procedure and treatment not carried out because of patient's decision for other reasons; K21.9 Gastro-esophageal reflux disease without esophagitis; D75.839 Thrombocytosis, unspecified; R73.9 Hyperglycemia, unspecified; M10.9 Gout, unspecified; Z83.3 Family history of diabetes mellitus; Z88.8 Allergy status to other drugs, medicaments and biological substances; Z79.2 Long term (current) use of antibiotics; Z79.899 Other long term (current) drug therapy

== ENCOUNTER 2022-01-15 15:41 | Emergency (ER) | payer BC, OTHER ==
[~2022-01-15] VITALS: Ht 185.4 cm; Wt 81.6 kg
[~2022-01-15 15:41] MED LIST changes: +LEVOFLOXACIN750 M2 PO
[2022-01-15 15:54] VITALS: BP 158/84
[2022-01-15 16:18] LABS: BILIRUBIN Negative (Negative); BLOOD 3+ (Negative); CLARITY Turbid (Clear); COLOR Orange (Yellow); GLUCOSE Negative (Negative); KETONE Trace (Negative); LEUKO ESTERASE 3+ (Negative); NITRITE Negative (Negative); PH 5.5 (4.5-8.0)
[2022-01-15 16:40] LABS: BASO # 0.1 10*3/uL (0.0-0.1); BASO % 0.6 % (0.0-1.0); EOS # 0.3 10*3/uL (0.0-0.4); EOS % 2.9 % (1.0-4.0); LYMPH # 1.4 10*3/uL (1.3-4.4); LYMPH % 16.7 % (27.0-41.0); MEAN CELL VOLUME 86.8 fl (80.0-94.0); MEAN CORPUSCULAR HGB CONC 32.3 g/dl (33.0-37.0); MEAN PLATELET VOLUME 9.5 fl (9.6-12.3); MONO # 0.7 10*3/uL (0.1-1.0); MONO % 7.8 % (3.0-9.0); NEUT # 6.1 10*3/uL (2.3-7.9); NEUT % 71.6 % (47.0-73.0); PLATELET COUNT AUTOMATED 215 10*3/uL (130-400); RED BLOOD COUNT 5.07 10*6/uL (4.50-5.90); RED CELL DISTRI WIDTH 13.1 % (0-14.5); WHITE BLOOD COUNT 8.6 10*3/uL (4.8-10.8)
[2022-01-15 16:42] LABS: RBC TNTC rbc/hpf (0-2)
[2022-01-15 16:58] LABS: ALKALINE PHOSPHATASE 97 U/L (45-117); BUN 15 mg/dl (7-24); CHLORIDE 104 mmol/L (98-107); CREATININE 1.06 mg/dL (0.70-1.30); LIPASE 227 U/L (73-393); POTASSIUM 4.5 mmol/L (3.5-5.1); SGOT/AST 32 IU/L (3-35); SGPT/ALT 50 U/L (12-78); SODIUM 138 mmol/L (136-145); TOTAL PROTEIN 8.4 gm/dL (6.4-8.2)
[2022-01-15] MEDS ORDERED: CIPRO500 MG PO (18:37)
== END 2022-01-15 19:02 | disposition left against medical advice (07) ==
LOC: ED 15:41
PROVIDERS: Physician Assistant
DX: R31.9 Hematuria, unspecified (principal); R10.30 Lower abdominal pain, unspecified; Z88.8 Allergy status to other drugs, medicaments and biological substances; Z90.89 Acquired absence of other organs; Z98.890 Other specified postprocedural states; F17.200 Nicotine dependence, unspecified, uncomplicated

== ENCOUNTER 2022-02-14 12:44 | Emergency (ER) | payer BC, OTHER ==
[~2022-02-14] VITALS: Ht 182.8 cm; Wt 81.6 kg
[2022-02-14 12:51] VITALS: BP 107/62
[2022-02-14] MEDS ORDERED: PREDNISONE50 MG PO (13:01)
== END 2022-02-14 13:14 | disposition home or self-care (01) ==
LOC: ED 12:44
DX: M10.9 Gout, unspecified (principal); Z88.8 Allergy status to other drugs, medicaments and biological substances; Z90.89 Acquired absence of other organs; Z98.890 Other specified postprocedural states

== ENCOUNTER 2022-08-21 08:11 | Emergency (ER) | payer OTHER ==
[~2022-08-21] VITALS: Ht 182.8 cm; Wt 83.9 kg
[~2022-08-21 08:11] MED LIST changes: +PREDNISONE50 MG PO
[2022-08-21 08:23] VITALS: BP 178/83
[2022-08-21 08:57] LABS: BASO # 0.1 10*3/uL (0.0-0.1); BASO % 0.6 % (0.0-1.0); EOS # 0.2 10*3/uL (0.0-0.4); EOS % 2.2 % (1.0-4.0); HEMATOCRIT 38.7 % (42.0-52.0); LYMPH # 0.9 10*3/uL (1.3-4.4); LYMPH % 8.5 % (27.0-41.0); MEAN CORPUSCULAR HGB 29.2 pg (27.0-31.0); MEAN CORPUSCULAR HGB CONC 32.8 g/dl (33.0-37.0); MEAN PLATELET VOLUME 9.6 fl (9.6-12.3); MONO # 0.9 10*3/uL (0.1-1.0); MONO % 8.6 % (3.0-9.0); NEUT # 8.1 10*3/uL (2.3-7.9); NEUT % 79.6 % (47.0-73.0); PLATELET COUNT AUTOMATED 182 10*3/uL (130-400); RED BLOOD COUNT 4.35 10*6/uL (4.50-5.90); RED CELL DISTRI WIDTH 12.6 % (0-14.5); WHITE BLOOD COUNT 10.2 10*3/uL (4.8-10.8)
[2022-08-21 09:11] LABS: ALKALINE PHOSPHATASE 92 U/L (45-117); BUN 19 mg/dl (7-24); CHLORIDE 98 mmol/L (98-107); CREATININE 0.92 mg/dL (0.70-1.30); SGOT/AST 49 IU/L (3-35); SGPT/ALT 42 U/L (12-78); SODIUM 131 mmol/L (136-145); TOTAL PROTEIN 7.9 gm/dL (6.4-8.2)
[2022-08-21] MEDS ORDERED: SEPTDS PO (09:16)
[2022-08-21] MEDS ORDERED: CEPHALEXIN500 M1 PO (09:16)
== END 2022-08-21 09:35 | disposition home or self-care (01) ==
LOC: ED 08:11
PROVIDERS: Student in an Organized Health Care Education/Training Program
DX: S61.230A Puncture wound without foreign body of right index finger without damage to nail, initial encounter (principal); L02.511 Cutaneous abscess of right hand; Z88.8 Allergy status to other drugs, medicaments and biological substances; Z91.048 Other nonmedicinal substance allergy status; Z90.89 Acquired absence of other organs; Z86.14 Personal history of Methicillin resistant Staphylococcus aureus infection; X58.XXXA Exposure to other specified factors, initial encounter; Y93.89 Activity, other specified; Y92.89 Other specified places as the place of occurrence of the external cause; Y99.8 Other external cause status

== ENCOUNTER 2022-09-11 04:55 | Emergency (ER) | payer OTHER ==
[~2022-09-11] VITALS: Ht 182.8 cm; Wt 83.9 kg
[2022-09-11 05:07] VITALS: BP 125/64
[2022-09-11] MEDS ORDERED: PREDNISONE20 M1 PO (05:18)
== END 2022-09-11 05:21 | disposition home or self-care (01) ==
LOC: ED 04:55
DX: M10.9 Gout, unspecified (principal); Z88.8 Allergy status to other drugs, medicaments and biological substances; Z98.890 Other specified postprocedural states; Z90.89 Acquired absence of other organs

== ENCOUNTER 2022-09-29 17:41 | Emergency (ER) | payer OTHER ==
[~2022-09-29 17:41] MED LIST changes: +PREDNISONE20 M1 PO
[2022-09-29 19:17] LABS: BASO # 0.1 10*3/uL (0.0-0.1); BASO % 0.7 % (0.0-1.0); EOS # 0.2 10*3/uL (0.0-0.4); EOS % 3.2 % (1.0-4.0); HEMATOCRIT 37.1 % (42.0-52.0); LYMPH # 1.5 10*3/uL (1.3-4.4); LYMPH % 21.3 % (27.0-41.0); MEAN CELL VOLUME 87.5 fl (80.0-94.0); MEAN CORPUSCULAR HGB 28.8 pg (27.0-31.0); MEAN CORPUSCULAR HGB CONC 32.9 g/dl (33.0-37.0); MEAN PLATELET VOLUME 9.1 fl (9.6-12.3); MONO # 0.6 10*3/uL (0.1-1.0); MONO % 8.6 % (3.0-9.0); NEUT # 4.6 10*3/uL (2.3-7.9); NEUT % 65.8 % (47.0-73.0); PLATELET COUNT AUTOMATED 200 10*3/uL (130-400); RED BLOOD COUNT 4.24 10*6/uL (4.50-5.90); WHITE BLOOD COUNT 6.9 10*3/uL (4.8-10.8)
[2022-09-29 19:23] VITALS: BP 119/62
[2022-09-29 19:46] LABS: ALKALINE PHOSPHATASE 89 U/L (45-117); BUN 15 mg/dl (7-24); CHLORIDE 99 mmol/L (98-107); CREATININE 0.84 mg/dL (0.70-1.30); POTASSIUM 4.2 mmol/L (3.5-5.1); SGPT/ALT 43 U/L (12-78); SODIUM 134 mmol/L (136-145); TOTAL PROTEIN 7.7 gm/dL (6.4-8.2)
== END 2022-09-29 22:57 | disposition left against medical advice (07) ==
LOC: ED 17:41
PROVIDERS: Physician Assistant
DX: M00.862 Arthritis due to other bacteria, left knee (principal); Z88.8 Allergy status to other drugs, medicaments and biological substances; Z90.89 Acquired absence of other organs; Z98.890 Other specified postprocedural states

== ENCOUNTER 2022-10-21 18:18 | Emergency (ER) | payer OTHER ==
[~2022-10-21] VITALS: Ht 182.8 cm; Wt 81.6 kg
[2022-10-21 20:22] VITALS: BP 140/76
[2022-10-21 23:08] LABS: BASO # 0.1 10*3/uL (0.0-0.1); BASO % 0.5 % (0.0-1.0); EOS # 0.2 10*3/uL (0.0-0.4); EOS % 1.4 % (1.0-4.0); HEMATOCRIT 35.6 % (42.0-52.0); LYMPH # 1.9 10*3/uL (1.3-4.4); LYMPH % 16.1 % (27.0-41.0); MEAN CELL VOLUME 85.4 fl (80.0-94.0); MEAN CORPUSCULAR HGB 27.1 pg (27.0-31.0); MEAN CORPUSCULAR HGB CONC 31.7 g/dl (33.0-37.0); MEAN PLATELET VOLUME 10.2 fl (9.6-12.3); MONO # 1.5 10*3/uL (0.1-1.0); MONO % 12.2 % (3.0-9.0); NEUT # 8.2 10*3/uL (2.3-7.9); NEUT % 69.3 % (47.0-73.0); PLATELET COUNT AUTOMATED 422 10*3/uL (130-400); RED BLOOD COUNT 4.17 10*6/uL (4.50-5.90); RED CELL DISTRI WIDTH 13.2 % (0-14.5); WHITE BLOOD COUNT 11.9 10*3/uL (4.8-10.8)
[2022-10-21 23:13] LABS: ALKALINE PHOSPHATASE 73 U/L (46-116); BUN 17 mg/dl (9-23); CHLORIDE 96 mmol/L (98-107); CREATININE 0.92 mg/dL (0.70-1.30); POTASSIUM 4.5 mmol/L (3.4-5.1); SGPT/ALT 23 U/L (10-49); SODIUM 132 mmol/L (136-145); TOTAL PROTEIN 8.4 gm/dL (6.0-8.0); URIC ACID 6.3 mg/dL (3.1-9.2)
== END 2022-10-22 02:52 | disposition home or self-care (01) ==
LOC: ED 18:18
PROVIDERS: Nurse Practitioner Family
DX: M10.9 Gout, unspecified (principal); Z88.8 Allergy status to other drugs, medicaments and biological substances; Z90.89 Acquired absence of other organs; Z98.890 Other specified postprocedural states

== ENCOUNTER 2023-05-21 03:26 | Emergency (ER) | payer OTHER ==
[~2023-05-21] VITALS: Ht 182.8 cm; Wt 79.4 kg
[2023-05-21 03:47] VITALS: BP 155/90
[2023-05-21] MEDS ORDERED: CYCLOBENZAPRINE10 MG PO (04:45)
== END 2023-05-21 05:00 | disposition home or self-care (01) ==
LOC: ED 03:26
DX: S39.011A Strain of muscle, fascia and tendon of abdomen, initial encounter (principal); K21.9 Gastro-esophageal reflux disease without esophagitis; M17.12 Unilateral primary osteoarthritis, left knee; Z88.8 Allergy status to other drugs, medicaments and biological substances; Z86.14 Personal history of Methicillin resistant Staphylococcus aureus infection; Z90.89 Acquired absence of other organs; Z98.890 Other specified postprocedural states; X50.0XXA Overexertion from strenuous movement or load, initial encounter; Y93.89 Activity, other specified; Y92.89 Other specified places as the place of occurrence of the external cause; Y99.8 Other external cause status

== ENCOUNTER 2023-05-31 23:23 | Emergency (ER) | payer OTHER ==
[~2023-05-31 23:23] MED LIST changes: +CYCLOBENZAPRINE10 MG PO
== END 2023-05-31 23:33 | disposition left against medical advice (07) ==
LOC: ED 23:23
DX: N50.811 Right testicular pain (principal); Z53.21 Procedure and treatment not carried out due to patient leaving prior to being seen by health care provider

== ENCOUNTER 2023-08-25 14:08 | Emergency (ER) | payer OTHER ==
[~2023-08-25] VITALS: Ht 182.8 cm; Wt 81.6 kg
[2023-08-25 14:16] VITALS: BP 145/80
[2023-08-25] MEDS ORDERED: CEPHALEXIN500 M1 PO (15:18)
== END 2023-08-25 15:31 | disposition home or self-care (01) ==
LOC: ED 14:08
DX: S61.012A Laceration without foreign body of left thumb without damage to nail, initial encounter (principal); W26.8XXA Contact with other sharp object(s), not elsewhere classified, initial encounter; Y93.89 Activity, other specified; Y92.89 Other specified places as the place of occurrence of the external cause; Y99.8 Other external cause status

== ENCOUNTER 2023-09-20 14:00 | Emergency (ER) | payer OTHER ==
[~2023-09-20] VITALS: Ht 182.8 cm; Wt 83.9 kg
[2023-09-20 14:44] VITALS: BP 152/73
[2023-09-20] MEDS ORDERED: CEPHALEXIN500 M1 PO (17:55)
== END 2023-09-20 18:00 | disposition home or self-care (01) ==
LOC: ED 14:00
DX: S81.812A Laceration without foreign body, left lower leg, initial encounter (principal); M10.9 Gout, unspecified; Z88.8 Allergy status to other drugs, medicaments and biological substances; Z98.890 Other specified postprocedural states; Z90.89 Acquired absence of other organs; F10.10 Alcohol abuse, uncomplicated; F11.10 Opioid abuse, uncomplicated; W26.8XXA Contact with other sharp object(s), not elsewhere classified, initial encounter; Y93.89 Activity, other specified; Y92.89 Other specified places as the place of occurrence of the external cause; Y99.0 Civilian activity done for income or pay

== ENCOUNTER 2023-10-31 01:21 | Emergency (ER) | payer OTHER ==
[~2023-10-31] VITALS: Ht 182.8 cm; Wt 86.2 kg
[2023-10-31 02:01] VITALS: BP 140/74
== END 2023-10-31 07:56 | disposition home or self-care (01) ==
LOC: ED 01:21
DX: M17.12 Unilateral primary osteoarthritis, left knee (principal); M10.9 Gout, unspecified; Z88.8 Allergy status to other drugs, medicaments and biological substances; Z98.890 Other specified postprocedural states; Z90.89 Acquired absence of other organs; F10.10 Alcohol abuse, uncomplicated; F14.10 Cocaine abuse, uncomplicated; F19.10 Other psychoactive substance abuse, uncomplicated

== ENCOUNTER 2024-06-03 09:50 | Emergency (ER) | payer OTHER ==
[~2024-06-03] VITALS: Ht 185.4 cm; Wt 83.9 kg
[2024-06-03 10:00] VITALS: BP 132/79
[2024-06-03 10:49] LABS: BASO # 0.1 10*3/uL (0.0-0.1); BASO % 0.9 % (0.0-1.0); EOS # 0.2 10*3/uL (0.0-0.4); EOS % 3.3 % (1.0-4.0); LYMPH # 1.8 10*3/uL (1.3-4.4); LYMPH % 26.3 % (27.0-41.0); MEAN CELL VOLUME 88.8 fl (80.0-94.0); MEAN CORPUSCULAR HGB 28.1 pg (27.0-31.0); MEAN CORPUSCULAR HGB CONC 31.7 g/dl (33.0-37.0); MEAN PLATELET VOLUME 10.3 fl (9.6-12.3); MONO # 0.7 10*3/uL (0.1-1.0); MONO % 10.8 % (3.0-9.0); NEUT # 3.9 10*3/uL (2.3-7.9); NEUT % 58.2 % (47.0-73.0); PLATELET COUNT AUTOMATED 206 10*3/uL (130-400); RED BLOOD COUNT 4.73 10*6/uL (4.50-5.90); RED CELL DISTRI WIDTH 12.9 % (0-14.5); WHITE BLOOD COUNT 6.7 10*3/uL (4.8-10.8)
[2024-06-03 10:49] LABS: BILIRUBIN Negative (Negative); BLOOD Negative (Negative); CLARITY Clear (Clear); COLOR Yellow (Yellow); GLUCOSE Negative (Negative); KETONE Trace (Negative); LEUKO ESTERASE Negative (Negative); NITRITE Negative (Negative); PH 5.5 (4.5-8.0)
[2024-06-03 11:16] LABS: BACTERIA TRACE
[2024-06-03 11:24] LABS: BUN 14 mg/dl (9-23); CHLORIDE 101 mmol/L (98-107); POTASSIUM 4.4 mmol/L (3.4-5.1)
[2024-06-03] MEDS ORDERED: NAPROSYN500 MG PO (11:47)
[2024-06-03] MEDS ORDERED: ZANAFLEX4 MG PO (11:47)
[2024-06-03] MEDS ORDERED: AMOXICILLIN500 M3 PO (11:47)
== END 2024-06-03 12:04 | disposition home or self-care (01) ==
LOC: ED 09:50
PROVIDERS: Nurse Practitioner Family
DX: S29.012A Strain of muscle and tendon of back wall of thorax, initial encounter (principal); K02.9 Dental caries, unspecified; R10.9 Unspecified abdominal pain; Z87.442 Personal history of urinary calculi; Z88.8 Allergy status to other drugs, medicaments and biological substances; Z98.890 Other specified postprocedural states; Z90.89 Acquired absence of other organs; Z86.14 Personal history of Methicillin resistant Staphylococcus aureus infection

== ENCOUNTER 2024-08-19 12:34 | Emergency (ER) | payer OTHER ==
[~2024-08-19] VITALS: Ht 182.8 cm; Wt 81.6 kg
[~2024-08-19 12:34] MED LIST changes: +AMOXICILLIN500 M3 PO; +NAPROSYN500 MG PO; +ZANAFLEX4 MG PO
[2024-08-19 12:47] VITALS: BP 124/72
[2024-08-19] MEDS ORDERED: PREDNISONE20 M1 PO (12:56)
[2024-08-19] MEDS ORDERED: methylPREDNISolone sod succ 125 MG VIAL IM ONE (13:00)
== END 2024-08-19 13:10 | disposition home or self-care (01) ==
LOC: ED 12:34
DX: L23.7 Allergic contact dermatitis due to plants, except food (principal); M10.9 Gout, unspecified; F10.10 Alcohol abuse, uncomplicated; F14.10 Cocaine abuse, uncomplicated; F19.10 Other psychoactive substance abuse, uncomplicated; Z88.8 Allergy status to other drugs, medicaments and biological substances; Z90.89 Acquired absence of other organs; Z98.890 Other specified postprocedural states

== ENCOUNTER 2025-03-11 08:31 | Emergency (ER) | payer MEDICARE, MEDICAID ==
[~2025-03-11] VITALS: Ht 182.8 cm; Wt 86.2 kg
[2025-03-11 08:48] VITALS: BP 154/92
[2025-03-11] MEDS ORDERED: IBUPROFEN 800 MG TAB PO ONE (08:55)
[2025-03-11] MEDS ORDERED: predniSONE 20 MG TAB PO ONE (08:55)
[2025-03-11] MEDS ORDERED: IBU800 M2 PO (08:58)
[2025-03-11] MEDS ORDERED: PREDNISONE20 M1 PO (08:58)
== END 2025-03-11 09:08 | disposition home or self-care (01) ==
LOC: ED 08:31
DX: M10.021 Idiopathic gout, right elbow (principal); R21 Rash and other nonspecific skin eruption; Z88.8 Allergy status to other drugs, medicaments and biological substances; Z86.14 Personal history of Methicillin resistant Staphylococcus aureus infection; Z98.890 Other specified postprocedural states; Z90.89 Acquired absence of other organs